=== PATIENT | female | born 1970 | race Caucasian/White ===

== ENCOUNTER 2017-04-01 09:15 | Day surgery (SDC) | payer OTHER ==
[2017-04-01] VITALS (9 sets, daily range): BP systolic 96–153; BP diastolic 64–106; PULSE 52–70; TEMP 97.4–97.8
[~2017-04-01] VITALS: Ht 152.4 cm; Wt 67.1 kg
[~2017-04-01 09:15] MED LIST: AMBI; AMBIEN 10MG10 M1 PO; AMBIEN 10MG10 MG PO; ATARAX 25MG25 MG/TAB PO; ATIVAN 1MG T1 MG/TAB PO; CALCIUM 500 W/V1 TAB PO; CARAFATE 1GM1 G PO; CARAFATE1 GM PO; CHOLEST-OFF PO; D H E NAS; DESYREL 50MG50 MG PO; ELMIRON 10100 MG/CA1 PO; ELMIRON100 MG PO; EXCEDRIN1 TAB PO; FIORICET 325 MG1 TA1 PO; FISH OIL1 IU PO; FISH OIL1000 MG PO; GARLIQUE400 MG PO; KLONOPIN 0.5MG0.5 MG PO; KLONOPIN 1MG1 MG PO; L-LYSINE MONOHY1 POW PO; LEVSIN0.125 M1 PO; LEXAPRO 10MG10 MG PO; LOPRESSOR 225 MG/TAB PO; LORTAB 10/500 51 TAB PO; MELATONIN PO; MIGRANAL0.5 MG/ACT NS; MULTI VITAMINS1 TAB PO; MULTIPLE VITAMI1 CAP PO; NORCO 325 MG-51 TAB PO; NORCO 325 MG-7.1 TAB PO; OSCAL 500 TAB500 MG PO; PAXIL 20MG20 MG PO; PERCOCET 325 MG1 TAB PO; PHENERGAN 25 TA25 MG PO; PRIL40; PROTONIX 40MG T40 MG PO; PROTONIX40 MG PO; REGLAN 10MG10 MG/TAB PO; ROXICODONE 55 MG/TAB PO; SUDAFED30 MG PO; SYNTHROID0.05 MG/TA PO; TIROSINT50 MCG PO; TOPROL XL 50MG50 MG PO; ULTRAM 50MG TAB50 MG PO; VITAMIN D32000 I1 PO; VITAMINE200 PO; WELLBUTRIN XL150 MG PO; ZOFRAN 4MG T4 MG/TAB PO; [UNRECOGNIZED DRUG - OTHER] NAS; [UNRECOGNIZED DRUG - OTHER] NAS; [UNRECOGNIZED DRUG - OTHER] NS
[2017-04-01] MEDS ORDERED: TOPROL XL 25MG25 MG PO (10:35)
[2017-04-01] MEDS ORDERED: ANTIVERT 25MG25 MG PO (10:39)
== END 2017-04-01 16:10 | disposition home or self-care (01) ==
LOC: SDCO 09:15
DX: K83.4 Spasm of sphincter of Oddi (principal); K31.5 Obstruction of duodenum; R10.11 Right upper quadrant pain; K21.9 Gastro-esophageal reflux disease without esophagitis; Z79.899 Other long term (current) drug therapy
CPT/HCPCS: C1769; C1874; J2405; J2704; J3010; J7120; Q9967

== ENCOUNTER → 2017-09-17 | Outpatient (CLI) | payer OTHER ==
[~2017-09-17] MED LIST changes: +ANTIVERT 25MG25 MG PO; +TOPROL XL 25MG25 MG PO
== END ==
LOC: MC.RAD 09-16 15:00
DX: Z12.31 Encounter for screening mammogram for malignant neoplasm of breast (principal)

== ENCOUNTER 2017-10-22 13:16 | Day surgery (SDC) | payer OTHER ==
[2017-10-22] VITALS (9 sets, daily range): BP systolic 95–130; BP diastolic 54–90; PULSE 71–88; TEMP 97.7–98.4
[~2017-10-22] VITALS: Ht 152.4 cm; Wt 69.1 kg
[2017-10-22] MEDS ORDERED: CYMBALTA 60MG60 MG PO (14:20)
[2017-10-22] MEDS ORDERED: SYNTHROID0.075 MG/T PO (14:21)
[2017-10-22] MEDS ORDERED: NATURAL E400 IU PO (14:22)
[2017-10-22] MEDS ORDERED: PHENERGAN 25 TA25 MG PO (14:23)
[2017-10-22] MEDS ORDERED: PERCOCET 325 MG1 TA2 PO (15:50)
== END 2017-10-22 19:45 | disposition home or self-care (01) ==
LOC: SDCO 13:16 → SURG 17:40 → SDCO 19:45
DX: K80.50 Calculus of bile duct without cholangitis or cholecystitis without obstruction (principal); K31.5 Obstruction of duodenum; K83.4 Spasm of sphincter of Oddi; K64.8 Other hemorrhoids; K21.9 Gastro-esophageal reflux disease without esophagitis; K59.00 Constipation, unspecified; K29.70 Gastritis, unspecified, without bleeding; N30.10 Interstitial cystitis (chronic) without hematuria; I10 Essential (primary) hypertension; K58.9 Irritable bowel syndrome, unspecified; G43.909 Migraine, unspecified, not intractable, without status migrainosus; F32.9 Major depressive disorder, single episode, unspecified; F41.9 Anxiety disorder, unspecified; Z83.71 Family history of colonic polyps
CPT/HCPCS: OP; C1769; C1874; J2405; J2704; Q9967

== ENCOUNTER → 2019-04-15 | Outpatient (CLI) | payer OTHER ==
[~2019-04-15] MED LIST changes: +CYMBALTA 60MG60 MG PO; +LIPITOR 40MG TA40 MG PO; +MIGRANAL NASA4 MG/ML NS; +NATURAL E400 IU PO; +PERCOCET 325 MG1 TA2 PO; +SYNTHROID0.075 MG/T PO
== END ==
LOC: MC.RAD 11:08
DX: Z12.31 Encounter for screening mammogram for malignant neoplasm of breast (principal)

== ENCOUNTER 2019-08-11 13:57 | Day surgery (SDC) | payer OTHER ==
[~2019-08-11] VITALS: Ht 152.4 cm; Wt 69.4 kg
[2019-08-11 14:41] VITALS: BP 121/87; PULSE 82; TEMP 98.2
[2019-08-11] MEDS ORDERED: LIPITOR20 MG PO (14:51)
[2019-08-11] MEDS ORDERED: TOPROL XL 50MG50 MG PO (14:53)
[2019-08-11] MEDS ORDERED: NEURONTIN100 MG/CAP PO (14:56)
[2019-08-11] MEDS ORDERED: FLEXERIL 1010 MG/TAB PO (14:57)
[2019-08-11 15:30] VITALS: BP 118/68; PULSE 81
--- NOTE | 2019-08-11 15:30 | NUR ---
Patient returns to GI bay 5 and is alert and oriented x3. Transfers with two person assist to recliner. Patient denies pain or nausea. IV fluids infusing #22G RH. Temp 97.8 and room air sats 100%. Call light in reach and family in room. Allowed to rest.
[2019-08-11 15:45] VITALS: BP 120/72; PULSE 70
--- NOTE | 2019-08-11 15:45 | NUR ---
Room air sats 96%. Talking with family.
[2019-08-11 16:00] VITALS: BP 127/79; PULSE 69
--- NOTE | 2019-08-11 16:00 | NUR ---
Denies nausea or pain. IV fluids infusing. Sipping on Sprite.
[2019-08-11 16:15] VITALS: BP 121/72; PULSE 81
--- NOTE | 2019-08-11 16:15 | NUR ---
Has met criteria to go home and continues to deny pain or nasuea.
--- NOTE | 2019-08-11 16:20 | NUR ---
IV discontinued and patient dresses self. Given dismissal instructions and voices understanding of these.
--- NOTE | 2019-08-11 16:25 | NUR ---
Patient dismissed to home per private vehicle driven by spouse and taken to the front door per wheelchair and assisted into vehicle.
== END 2019-08-11 16:25 | disposition home or self-care (01) ==
LOC: SDCO 13:57
DX: K31.5 Obstruction of duodenum (principal); K83.8 Other specified diseases of biliary tract; K92.1 Melena; K59.00 Constipation, unspecified; K21.9 Gastro-esophageal reflux disease without esophagitis; I10 Essential (primary) hypertension; K58.0 Irritable bowel syndrome with diarrhea; G43.909 Migraine, unspecified, not intractable, without status migrainosus; N30.10 Interstitial cystitis (chronic) without hematuria; E66.9 Obesity, unspecified; Z83.71 Family history of colonic polyps; Z88.1 Allergy status to other antibiotic agents; Z88.8 Allergy status to other drugs, medicaments and biological substances
CPT/HCPCS: OP; C1769; J2704; J7120; Q9967

== ENCOUNTER → 2020-04-24 | Outpatient (CLI) | payer OTHER ==
[~2020-04-24] MED LIST changes: +FLEXERIL 1010 MG/TAB PO; +LIPITOR20 MG PO; +NEURONTIN100 MG/CAP PO
[2020-04-24 11:31] LABS: BASO # 0.1 (0.0-0.2); BASO % 0.9 % (0.0-2.0); EOS # 0.1 (0.0-0.7); EOS % 1.3 % (0-4.0); GRAN # 2.7 (1.4-6.5); GRAN % 50.4 % (42.2-75.2); HEMOGLOBIN 10.7 g/dl (12.5-16.0); LYMPH # 2.2 (1.2-3.4); MEAN CELL VOLUME 80 fl (80.0-100.0); MEAN CORPUSCULAR HEMOGLOBIN 26 pg (27.0-31.0); MEAN CORPUSCULAR HGB CONC 33 g/dl (33.0-37.0); MONO # 0.4 (0.1-0.6); MONO % 7.2 % (1.7-9.3); PLATELET COUNT 291 K/mm3 (130-400); RED BLOOD COUNT 4.09 M/mm3 (4.10-5.30); REDCELL DISTRIBUTION WIDTH-CV 15.1 % (11.5-14.5)
[2020-04-24 11:35] LABS: HEMATOCRIT 32.9 % (37.0-47.0)
[2020-04-24 11:44] LABS: ALBUMIN 4.4 gm/dL (3.5-5.0); BILIRUBIN,TOTAL 0.4 mg/dL (0.0-1.0); CALCIUM 9.8 mg/dL (8.4-10.2); CREATININE, serum 0.84 (0.52-1.25); POTASSIUM 4.2 mmol/L (3.4-5.0); TOTAL PROTEIN 7.6 gm/dL (6.4-8.2)
== END ==
LOC: COL.LAB 11:00
PROVIDERS: Family Medicine
DX: K59.00 Constipation, unspecified (principal); R10.9 Unspecified abdominal pain; R11.2 Nausea with vomiting, unspecified; R19.7 Diarrhea, unspecified

== ENCOUNTER 2020-04-27 06:09 | Day surgery (SDC) | payer OTHER ==
[~2020-04-27] VITALS: Ht 152.4 cm; Wt 65.7 kg
[2020-04-27 06:40] VITALS: BP 101/55; PULSE 80; TEMP 97.9
[2020-04-27] MEDS ORDERED: LEVSIN 0.10.125 MG/T PO (06:57)
[2020-04-27] MEDS ORDERED: ATARAX 25MG25 MG/TAB PO (06:58)
[2020-04-27] MEDS ORDERED: CARAFATE 1GM1 G PO (06:59)
[2020-04-27] MEDS ORDERED: MELATONIN3 M1 PO (07:01)
[2020-04-27] MEDS ORDERED: PREDNISONE10 MG PO (07:01)
[2020-04-27 07:45] VITALS: BP 114/65; PULSE 77; TEMP 97.5
--- NOTE | 2020-04-27 07:45 | NUR ---
Patient brought back to [facility] via cart. Ambulated to chair with assist. Placed on monitors, vital signs stable. Patient is awake and oriented, slightly drowsy. at bedside. Report recieved from Phyllis PATHAK. Patient reports pain of 6/10 to epigastric area. Requesting water, sprite, and jello. made aware of pain, orders recieved. States she has to stay for 2 hours. Warm blanket provided, call swenson within reach. Will continue to monitor.
[2020-04-27 08:00] VITALS: BP 124/70; PULSE 71
--- NOTE | 2020-04-27 08:00 | NUR ---
Pain medication given per orders. Patient tolerating food and drink without difficulty. Will continue to monitor.
[2020-04-27 08:15] VITALS: BP 116/59; PULSE 73
--- NOTE | 2020-04-27 08:15 | NUR ---
States pain is now 3/10 to epigastric area. Complains of headache at this time. Requesting Soda. Will continue to monitor.
[2020-04-27 08:30] VITALS: BP 124/68; PULSE 67
[2020-04-27 09:00] VITALS: BP 107/51; PULSE 71
--- NOTE | 2020-04-27 09:00 | NUR ---
Patient requesting Zofran and Toradol for headache and nausea. MD made aware. Orders recieved. Medication given per orders. MD in room speaking with patient at this time. WIll continue to monitor.
--- NOTE | 2020-04-27 09:20 | NUR ---
Patient states nausea and pain are significantly better. Pain being 1/10 to abdomen. States she is ready to go home at this time. MD in agreement. IV removed, intact. Patient to get dressed at this time.
--- NOTE | 2020-04-27 09:33 | NUR ---
Discharge instuctions and education packet reviewed with patient and . All questions answered. Patient brought down to lobby via wheel chair. to drive her home. All belongings in hand.
== END 2020-04-27 09:33 | disposition home or self-care (01) ==
LOC: SDCO 06:09
DX: R10.11 Right upper quadrant pain (principal); K31.9 Disease of stomach and duodenum, unspecified; K83.8 Other specified diseases of biliary tract; K21.9 Gastro-esophageal reflux disease without esophagitis; D64.9 Anemia, unspecified; G43.909 Migraine, unspecified, not intractable, without status migrainosus; G89.29 Other chronic pain; K58.2 Mixed irritable bowel syndrome; E03.9 Hypothyroidism, unspecified; N30.10 Interstitial cystitis (chronic) without hematuria; Z88.1 Allergy status to other antibiotic agents; Z88.8 Allergy status to other drugs, medicaments and biological substances; Z79.899 Other long term (current) drug therapy
CPT/HCPCS: C1769; J1885; J2405; J2704; J3010; J7120; Q9967

== ENCOUNTER → 2020-08-15 | Outpatient (CLI) | payer OTHER ==
[~2020-08-15] MED LIST changes: +LEVSIN 0.10.125 MG/T PO; +MELATONIN3 M1 PO; +PREDNISONE10 MG PO
== END ==
LOC: ZCOL.LAB 16:17
DX: J02.9 Acute pharyngitis, unspecified (principal); Z20.828 Contact with and (suspected) exposure to other viral communicable diseases

== ENCOUNTER → 2024-04-20 | Outpatient (CLI) | payer BC | LOC: MC.RAD 10:15 | DX: Z12.31 Encounter for screening mammogram for malignant neoplasm of breast (principal) ==